=== PATIENT | female | born 1975 | race Caucasian/White ===

== ENCOUNTER 2024-01-07 23:30 | Emergency (ER) | payer OTHER ==
[~2024-01-07] VITALS: Ht 160 cm; Wt 64.9 kg
[2024-01-07] MEDS ORDERED: LEVOTHYROXINE88 MC1 (23:56)
[2024-01-07] MEDS ORDERED: CANDESARTAN CILE8 M1 (23:57)
[2024-01-07] MEDS ORDERED: WELLBUTRIN XL300 MG (23:57)
[2024-01-07] MEDS ORDERED: PROGESTERONE100 M1 (23:57)
[2024-01-07] MEDS ORDERED: ESTRADIOL1 EAC4 (23:58)
[2024-01-07] MEDS ORDERED: OZEMPIC0.25 MG/02 (23:59)
[2024-01-08] MEDS ORDERED: ENOXAPARIN SODIUM 60 MG/0.6 ML SYRINGE SUBCUTANEO STA (00:47)
[2024-01-08 01:20] LABS: ABG PH 7.419 (7.35-7.45); ABG PO2 91.5 mmHg (80-100); ABG pCO2 39.6 mmHg (35-45); BASE EXCESS 0.6 mmol/l; SaO2 97.2 %; Tco2 26.3 mmol/l
[2024-01-08 01:21] LABS: allen test SATISFACTORY; o2 21 %; puncture site RADIAL RIGHT
[2024-01-08 01:22] LABS: HEMATOCRIT 39.3 % (36.0-45.00); HEMOGLOBIN 13.5 g/dL (12.0-15.00); MEAN CELL VOLUME 85.9 fL (80.00-100.00); MEAN CORPUSCULAR HEMOGLOBIN 29.5 pg (27.00-32.0); MEAN CORPUSCULAR HGB CONC 34.3 g/dl (32.0-36.0); PLATELET COUNT 300 K/uL (150-450); RED BLOOD COUNT 4.57 M/uL (4.00-6.00); RED CELL DISTRIBUTION WIDTH 12.8 % (11.5-14.5)
[2024-01-08 02:26] LABS: INR 0.96; PROTHROMBIN TIME 10.1 SECONDS (9.0-11.5)
[2024-01-08 02:32] LABS: ALBUMIN 4.3 gm/dL (3.4-5.0); BILIRUBIN TOTAL 0.41 mg/dL (0.3-1.2); BILIRUBIN,CONJUGATED 0.11 mg/dL (0.0-0.2); BILIRUBIN,UNCONJUGATED 0.3 mg/dL (0.0-0.6); CALCIUM 9.7 mg/dL (8.5-10.1); CREATININE SERUM 0.75 mg/dL (0.55-1.02); GFR 81.79; GLOBULINA 3.7 G/DL (2.4-3.5); POTASSIUM 4.01 mEq/L (3.5-5.1)
[2024-01-08 02:51] LABS: D DIMER < 0.19 MG/L; PARTIAL THROMBOPLASTIN TIME 27.3 SECONDS (22.0-34.0)
== END 2024-01-08 11:34 | disposition home or self-care (01) ==
LOC: ER 23:31
PROVIDERS: General Practice
DX: R06.02 Shortness of breath (principal); R53.81 Other malaise; R53.83 Other fatigue; R07.89 Other chest pain; Z88.2 Allergy status to sulfonamides; M79.604 Pain in right leg; I87.2 Venous insufficiency (chronic) (peripheral); I83.892 Varicose veins of left lower extremity with other complications; I77.1 Stricture of artery
CPT/HCPCS: 71260; 93922; 93925; 93970; Q9965